=== PATIENT | female | born 1980 | race Two or more races ===

== ENCOUNTER 2023-07-23 09:28 | Emergency (ER) | payer MEDICAID ==
[~2023-07-23] VITALS: Ht 154.9 cm; Wt 83.9 kg
[2023-07-23] MEDS ORDERED: ACETAMINOPHEN ES 500 MG TABLET ONE (09:42)
[2023-07-23] MEDS ORDERED: KETOROLAC TROMETHAMINE INJ 30 MG/ML VIAL ONE (09:42)
[2023-07-23] MEDS: KETOROLAC TROMETHAMINE INJ 60 MG/2 ML VIAL IM ONE (09:50)
[2023-07-23] MEDS: ACETAMINOPHEN ES 500 MG TABLET PO ONE (09:50)
[2023-07-23] MEDS ORDERED: HYDR-4209 PO (11:07)
[2023-07-23] MEDS ORDERED: KETO10TA2 PO (11:07)
[2023-07-23 11:20] VITALS: BP 134/75; TEMP 98.5; O2SAT 98
== END 2023-07-23 11:21 | disposition home or self-care (01) ==
LOC: ER 09:28
DX: S20.211A Contusion of right front wall of thorax, initial encounter (principal); S49.81XA Other specified injuries of right shoulder and upper arm, initial encounter; W18.39XA Other fall on same level, initial encounter; Y93.89 Activity, other specified; Y92.89 Other specified places as the place of occurrence of the external cause; Y99.8 Other external cause status
CPT/HCPCS: 99284; 96372; 71100; 73030; J1885